=== PATIENT | female | born 1960 | race Caucasian/White ===

== ENCOUNTER 2018-02-19 11:52 | Emergency (ER) | payer SELFPAY ==
[2018-02-19] MEDS ORDERED: HYDROcodone/Acetaminophen 10/325 mg Tablet ONE (12:08)
[2018-02-19] MEDS ORDERED: Bacitracin Zinc 1 Packet ONE (12:08)
[2018-02-19] MEDS ORDERED: Sulfameth/Trimethoprim DS 800-160mg TAB ONE ×4 (12:08→12:10)
[2018-02-19] MEDS ORDERED: Ibuprofen 800 MG TAB ONE (12:14)
== END 2018-02-19 12:10 | disposition home or self-care (01) ==
LOC: BURERS 11:52
DX: S90.861A Insect bite (nonvenomous), right foot, initial encounter (principal); L08.9 Local infection of the skin and subcutaneous tissue, unspecified; K21.9 Gastro-esophageal reflux disease without esophagitis; F32.9 Major depressive disorder, single episode, unspecified
CPT/HCPCS: 99283

== ENCOUNTER 2020-04-13 14:27 | Outpatient (CLI) | payer OTHER ==
[2020-04-14 01:06] LABS: Free T4 (Free Thyroxine) 0.71 ng/dL (0.70-1.48)
[2020-04-14 11:52] LABS: Thyroid Stimulating Hormone 32.9139 uIU/mL (0.35-4.94)
== END 2020-04-13 14:28 | disposition home or self-care (01) ==
LOC: BURLAB 14:27
PROVIDERS: ATTEND Family Medicine
DX: E03.9 Hypothyroidism, unspecified (principal)
CPT/HCPCS: 36415; 84439; 84443

== ENCOUNTER 2020-09-14 11:21 | Outpatient (CLI) | payer OTHER ==
[2020-09-14 17:55] LABS: Free T4 (Free Thyroxine) 0.92 ng/dL (0.70-1.48)
[2020-09-15 06:57] LABS: Thyroid Stimulating Hormone 5.8964 uIU/mL (0.35-4.94)
== END 2020-09-14 11:22 | disposition home or self-care (01) ==
LOC: BURLAB 11:21
PROVIDERS: ATTEND Family Medicine
DX: E03.9 Hypothyroidism, unspecified (principal)
CPT/HCPCS: 36415; 84439; 84443; 84481

== ENCOUNTER 2021-01-11 12:45 | Emergency (ER) | payer SELFPAY ==
[2021-01-11 13:33] LABS: Hemoglobin 10.9 g/dL (12.0-16.0); Mean Corpuscular HGB CONC 30.6 g/dL (32.0-36.0); Mean Corpuscular Hemoglobin 22.5 pg (27.0-31.0); Mean Corpuscular Volume 73.3 fL (78.0-98.0); Mean Platelet Volume 6.2 fL (7.4-10.4); Platelet Count 276 thou/uL (130-400); RBC Distribution Width 14.9 % (11.5-14.5); Red Blood Cell (RBC) Count 4.87 mill/uL (4.20-5.40); White Blood Cell (WBC) Count 4.5 thou/uL (4.8-10.8)
[2021-01-11 13:45] LABS: ALT (SGPT) 26 U/L (8-55); AST (SGOT) 45 U/L (5-34); Albumin 4.1 g/dL (3.5-5.0); Alkaline Phosphatase 73 U/L (40-110); Anion Gap 17 mmol/L (10-20); BUN (Urea Nitrogen) 13 mg/dL (9.8-20.1); Bilirubin, Total 0.4 mg/dL (0.2-1.2); Calc. Creatinine Clearance 0 mL/min (70-130); Calcium 8.6 mg/dL (7.8-10.44); Carbon Dioxide 26 mmol/L (22-29); Chloride 95 mmol/L (98-107); Globulin 3.3 g/dL (2.4-3.5); Glucose 101 mg/dL (70-105); Potassium 3.5 mmol/L (3.5-5.1); Protein, Total 7.4 g/dL (6.0-8.3); Sodium 134 mmol/L (136-145)
[2021-01-11] MEDS ORDERED: Dexamethasone 10 MG/ML VIAL ONE (13:51)
[2021-01-11] MEDS ORDERED: Acetaminophen 325 MG TAB ONE (13:51)
[2021-01-11 13:52] LABS: Band 22 % (5-11); Lymphocytes 15 % (21-51); MDiff Complete? YES; Microcytosis SLIGHT = 6-15 cells (100X) (0-5/hpf); Monocytes 16 % (0-10); Neutrophil 44 % (42-75); Reactive Lymphocytes 3 % (0-10)
[2021-01-11 14:03] LABS: CKMB 0.5 ng/mL (0-6.6)
[2021-01-11] MEDS ORDERED: Azithromycin 500 MG VIAL ONE (14:20)
[2021-01-11] MEDS ORDERED: cefTRIAXone\\ROCEPHIN 1 GM VIAL ONE (14:20)
[2021-01-11] MEDS ORDERED: Enoxaparin Sodium 100 MG/ML SYRINGE ONE (14:37)
[2021-01-11 16:41] LABS: Bilirubin Negative (Negative); Blood, Urine Negative (Negative); Clarity Slightly Cloudy (Clear); Glucose, Urine (Dipstick) Negative (Negative); Ketone, Urine Negative (Negative); Leukocyte Negative (Negative); Nitrite Negative (Negative); Protein, Urine (Dipstick) Trace mg/dL (Neg-Trace); pH, Urine 5.5 (5.0-9.0)
[2021-01-11 19:27] LABS: CKMB 0.6 ng/mL (0-6.6)
== END 2021-01-11 18:52 | disposition short-term general hospital (02) ==
LOC: BURERS 12:45
DX: U07.1 COVID-19 (principal); I21.4 Non-ST elevation (NSTEMI) myocardial infarction; R09.02 Hypoxemia; E03.9 Hypothyroidism, unspecified; K21.9 Gastro-esophageal reflux disease without esophagitis; Z79.899 Other long term (current) drug therapy
CPT/HCPCS: 71045; 80053; 81003; 82553; 83605; 83880; 84484; 85025; 87040; 93005; 96365; 96372; 96375; J0456; J0696; J1100; J1650

== ENCOUNTER 2022-01-14 08:53 | Outpatient (CLI) | payer OTHER ==
[2022-01-14 10:07] LABS: #Basophils 0.1 thou/uL (0.0-0.2); #Eosinphils 0.2 thou/uL (0.0-0.7); #Lymphocytes 1.7 thou/uL (1.20-3.40); #Monocytes 0.3 thou/uL (0.11-0.59); #Neutrophils 2.7 thou/uL (1.40-6.50); %Basophils 1.5 % (0.0-1.0); %Eosinophils 4.9 % (0.0-10.0); %Lymphocytes 34.1 % (21.0-51.0); %Neutrophils 53.6 % (42.0-75.0); Hemoglobin 9.9 g/dL (12.0-16.0); Mean Corpuscular HGB CONC 31.2 g/dL (32.0-36.0); Mean Corpuscular Hemoglobin 22.7 pg (27.0-31.0); Mean Corpuscular Volume 72.7 fL (78.0-98.0); Mean Platelet Volume 6.1 fL (7.4-10.4); Platelet Count 346 thou/uL (130-400); RBC Distribution Width 16.3 % (11.5-14.5); Red Blood Cell (RBC) Count 4.37 mill/uL (4.20-5.40); White Blood Cell (WBC) Count 5.1 thou/uL (4.8-10.8)
[2022-01-14 10:42] LABS: ALT (SGPT) 26 U/L (8-55); AST (SGOT) 29 U/L (5-34); Albumin 4.2 g/dL (3.4-4.8); Alkaline Phosphatase 119 U/L (40-110); Anion Gap 13 mmol/L (10-20); BUN (Urea Nitrogen) 8 mg/dL (9.8-20.1); Bilirubin, Total 0.3 mg/dL (0.2-1.2); Calc. Creatinine Clearance 0 mL/min (70-130); Calcium 9.3 mg/dL (7.8-10.44); Carbon Dioxide 30 mmol/L (23-31); Cardiac Risk 3.9 (Less than 4.5); Chloride 105 mmol/L (98-107); Cholesterol 152 mg/dl (< 200 Desired); Glucose 86 mg/dL (80-115); HDL Cholesterol 39 mg/dL (>60 Neg Risk); LDL Cholesterol, Calculated 94 mg/dL; Potassium 3.9 mmol/L (3.5-5.1); Protein, Total 7.2 g/dL (5.8-8.1); Sodium 144 mmol/L (136-145); Triglycerides 95 mg/dL (Less than 150)
[2022-01-14 10:52] LABS: Thyroid Stimulating Hormone 4.5665 uIU/mL (0.35-4.94)
[2022-01-14 11:00] LABS: Anisocytosis SLIGHT = 6-15 cells (100X) (0-5/hpf); Elliptocytes SLIGHT = 2-5 cells (100X) (0-1/hpf); MDiff Complete? YES; Microcytosis SLIGHT = 6-15 cells (100X) (0-5/hpf); Platelet Morphology Comment Appears Adequate
[2022-01-14 18:21] LABS: Free T4 (Free Thyroxine) 1.01 ng/dL (0.70-1.48)
== END 2022-01-14 08:54 | disposition home or self-care (01) ==
LOC: BURLAB 08:53
PROVIDERS: ATTEND Family Medicine
DX: Z13.6 Encounter for screening for cardiovascular disorders (principal); E03.9 Hypothyroidism, unspecified
CPT/HCPCS: 36415; 80053; 80061; 84439; 84443; 85025